=== PATIENT | female | born 1985 | race Caucasian/White ===

== ENCOUNTER 2018-03-05 15:24 | Inpatient (IN) | END 2018-03-07 16:35 | disposition home or self-care (01) | DRG 775 ==

== ENCOUNTER 2018-08-05 06:20 | Day surgery (SDC) | payer OTHER ==
[~2018-08-05] VITALS: Ht 165.1 cm; Wt 70.0 kg
[2018-08-05] VITALS (13 sets, daily range): BP systolic 91–120; BP diastolic 49–75; PULSE 56–113; RESP 14–23; Ht 165.1 cm; Wt 70.0 kg
[~2018-08-05 06:20] MED LIST: CALC300T4 PO; CLINDAMYCIN 900 MG/D5W (PMX) 50 ML IVPB ONE; LACTATED RINGER'S 1,000 ML IV* SCH; PNV1TABL43 PO; RANI150T35 PO
[2018-08-05] MEDS ORDERED: CLINDAMYCIN 900 MG/50 ML D5W IVPB IVPB ONE (07:00)
--- NOTE | 2018-08-05 07:18 | PREAC ---
Date/Time of Note Date/Time of Note DATE: 08/05/18 TIME: 07:16 Anesthesia Eval and Record Evaluation Time Pre-Procedure Interview DATE: 08/05/18 TIME: 07:16 Age 33 Sex female NPO: 8 hrs Preoperative diagnosis Voluntary sterilization Planned procedure Laparoscopic BTL Past Medical History Past Medical History: Includes GI: Obesity Surgery & Anesthesia Issues No known issue Meds Anticoagulation: No Beta Delroy within 24 hr: No Reason Beta Delroy not given: Pt. not on B-Delroy Discontinued Reported Medications Calcium Carbonate* (Tums X-Str) 300 Mg Tab.chew, 300 MG PO DAILY, TAB.CHEW 03/05/18 Ranitidine Hcl* (Zantac*) 150 Mg Tablet, 150 MG PO DAILY, #30 TAB 03/05/18 Vit/Fe Fumarate/Fa* ( Vitamin Tablet*) 1 Tab Tablet, 1 TAB PO DAILY, TAB 12/05/14 Current Medications Lactated Ringer's 1,000 ml @ 125 mls/hr Q8H IV* ; Start 08/05/18 at 06:00; Stop 08/05/18 at 13:59 Meds reviewed: Yes Allergies Coded Allergies: Penicillins (Verified Allergy, Intermediate, RASH, 08/05/18) Allergies Reviewed: Yes Labs/Studies Labs Reviewed: Reviewed by anesthesiologist test: Negative Pre-procedure Exam Airway: Adequate mouth opening Mallampati: Mallampati II Teeth: Normal Lung: Normal Heart: Normal ASA Physical Status ASA physical status: 2 Emergency: None Planned Anesthetic General/MAC: ETT Planned Pain Management Parenteral pain med Pre-operative Attestations Prior to commencing anesthesia and surgery, the patient was re-evaluated, there was verification of: *The patient's identity *The results of appropriate recent lab work and preoperative vital signs *The above evaluation not changing prior to induction *Anesthetic plan, risk benefits, alternative and complications discussed with patient/family; questions answered; patient/family understands, accepts and wishes to proceed. CLEMENTE RIVERA MD Aug 05, 2018 07:18
[2018-08-05] MEDS ORDERED: PROPOFOL 20 ML ONE (07:38)
[2018-08-05] MEDS ORDERED: GLYCOPYRROLATE 1 MG INJ ONE ×2 (07:38→08:00)
[2018-08-05] MEDS ORDERED: LIDOCAINE 2% (SDV) 5 ML INJ ONE (07:38)
[2018-08-05] MEDS ORDERED: SUCCINYLCHOLINE CHLORIDE 100 MG/5 ML SYG IV ONE (07:38)
[2018-08-05] MEDS ORDERED: ROCURONIUM 50 MG INJ ONE (07:38)
[2018-08-05] MEDS ORDERED: NEOSTIGMINE 3 MG/3 ML SYRINGE ONE ×2 (07:38→08:15)
[2018-08-05] MEDS ORDERED: KETOROLAC 30 MG INJ ONE (08:15)
[2018-08-05] MEDS ORDERED: BUPIVACAINE 0.5%/EPI (SDV) 30 ML INJ INJ ONE (08:20)
[2018-08-05] MEDS ORDERED: BUPIVACAINE 0.5%/EPI (SDV) 30 ML INJ ONE (08:21)
[2018-08-05] MEDS ORDERED: KETOROLAC 15 MG INJ IV PRN (08:30)
[2018-08-05] MEDS ORDERED: ONDANSETRON 4 MG INJ IV PRN (08:30)
[2018-08-05] MEDS ORDERED: METOCLOPRAMIDE 10 MG INJ IV PRN (08:30)
[2018-08-05] MEDS ORDERED: DIPHENHYDRAMINE 50 MG INJ IV PRN (08:30)
[2018-08-05] MEDS ORDERED: MIDAZOLAM 1 MG/ML 2 ML INJ IV PRN (08:30)
[2018-08-05] MEDS ORDERED: METOCLOPRAMIDE 10 MG INJ ONE (08:32)
[2018-08-05] MEDS ORDERED: ONDANSETRON 4 MG INJ ONE (08:32)
--- NOTE | 2018-08-05 08:37 | OPR ---
Date/Time of Note Date/Time of Note DATE: 08/05/18 TIME: 08:32 Operative Report Procedure Date: Aug 05, 2018 Preoperative Diagnosis Patient desires permanent sterilization. Postoperative Diagnosis Patient desires permanent sterilization. Operation/Procedure Performed Laparoscopic bilateral tubal fulguration, transection and bilateral distal salpingectomies. Surgeon Shilo Reaves MD Agricultural Research Director none Anesthesia Type: general Estimated Blood Loss: minimal Transfusion none Specimen bilateral distal tubal segments Grafts/Implants none Tubes/Drains none Complications none Pt Condition Post Procedure: stable Disposition: PACU Procedure Description FINDINGS: Normal tubes, ovaries bilaterally. Normal uterus. CONSENT: Please see my preop H and P consent in the office for the consent process. DESCRIPTION OF PROCEDURE: She was taken to operating room and general anesth esia was induced. She was prepped and draped in the usual sterile fashion in dorsal lithotomy position. Surgical time-out was done. Anterior lip of the cervix was grasped using a single-tooth tenaculum, and a HUMI was inserted in normal fashion. The tenaculum was removed. There was no bleeding from the cervix. The patient already had a Silva catheter as well. Gloves were changed. A 5 mm incision was developed inside the umbilicus. A blunt trocar was inserted in the normal fashion. Intraperitoneal position was confirmed using the laparoscope. Pneumoperitoneum was obtained. The patient was placed in Trendelenburg position. A second trocar was inserted under direct visualization of the laparoscope at the pubic hairline in the midline. A 5 cm mid ampullary region of the right tube was coagulated. Complete desiccation of the entire diameter of tube was visualized. The middle of the coagulated portion was cut. I proceeded with distal salpingectomy by cauterizing and transecting along the mesosalpinx. the distal end was removed and sent to pathology. There was no bleeding. Same procedure was done on the contralateral side. All instruments removed under direct visualization of the laparoscope after pneumoperitoneum was released. There was no bleeding. Skin closed using 4-0 Monocryl. Then 10 mL 0.5% Marcaine with epinephrine was injected at the incision sites. HUMI was removed. There was no bleeding from the vagina. Patient tolerated the procedure well. SHILO REAVES MD Aug 05, 2018 08:37
--- NOTE | 2018-08-05 09:40 | PAC ---
Date/Time of Note Date/Time of Note DATE: 08/05/18 TIME: 09:40 Post-Anesthesia Notes Post-Anesthesia Note Last documented vital signs Vital Signs Date Temp Pulse Resp B/P (MAP) Pulse Ox O2 O2 Flow FiO2 Time Delivery Rate 08/05/18 98.3 60 17 102/63 99 Room Air 09:31 (76) Activity: WNL Respiratory function: WNL Cardiovascular function: WNL Mental status: Baseline Pain reasonably controlled: Yes Hydration appropriate: Yes Nausea/Vomiting absent: Yes CLEMENTE RIVERA MD Aug 05, 2018 09:40
== END 2018-08-05 10:40 | disposition home or self-care (01) ==
LOC: SDS 06:20
PROVIDERS: ATTEND Specialist
DX: Z30.2 Encounter for sterilization (principal); E66.9 Obesity, unspecified
CPT/HCPCS: 58661; 58670; 80048; 84702; 85025; 85610; 85730; J1885; J2250; J2405; J2710; J2765; Z7512; Z7610; 88302